=== PATIENT | male | born 1945 | race Caucasian/White ===

== ENCOUNTER → 2017-05-01 | Outpatient (CLI) | payer OTHER, MEDICARE ==
[~2017-05-01] MED LIST: ALBU90OI INH; ALLO300; AMIT25 PO; BUDE6HFA INH; CELE200 PO; CEPH500 PO; EZET10 PO; FEXO180 PO; FLUT44OIA INH; HYDHCL25 PO; HYDPAM50 PO; IPRA.03NI; Ipratropium Bro30 ML; LEVCAR10; LEVFLO500 PO; LEVOFLOXACIN750 MG PO; LIDO700A20 TOP; LOVENOX; METPRE4DP PO; MONT10T PO; OMEP20ER PO; PRAV10; Prilosec Otc20 MG; RABE20 PO; RXCEPH500 PO; SIMV10 PO; Sudogest60 MG PO; TRAM50 PO; TRAZ50 PO; VIOXX; XARELTO20 MG PO; [UNRECOGNIZED DRUG - OTHER]
[2017-05-01 13:28] LABS: Glucose, Blood 118 mg/dL (70-99)
== END | disposition home or self-care (01) ==
LOC: LAB SHORT 10:52 → OLS 10:52 → EDSTATUS 04-09 10:15 → LAB FUT 04-09 10:15
PROVIDERS: Internal Medicine
DX: I10 Essential (primary) hypertension (principal)
CPT/HCPCS: 36415; 82947; 83036

== ENCOUNTER → 2017-05-03 | Outpatient (CLI) | payer OTHER, MEDICARE | END | disposition home or self-care (01) | LOC: LAB 11:25 | PROVIDERS: Internal Medicine | DX: I10 Essential (primary) hypertension (principal) | CPT/HCPCS: 81050; 82384; 82530; 82570; 83835; 84585 ==

== ENCOUNTER 2017-05-05 07:10 | Day surgery (SDC) | payer OTHER, MEDICARE ==
[~2017-05-05] VITALS: Ht 188 cm; Wt 99.2 kg
== END 2017-05-05 09:39 | disposition home or self-care (01) ==
LOC: ORSCSDS 07:10
PROVIDERS: Internal Medicine Gastroenterology
PROC: 0DBK8ZX Excision of Ascending Colon, Via Natural or Artificial Opening Endoscopic, Diagnostic (ICD-10-PCS; principal; 2017-05-05 08:45)
PROC: 0DBM8ZX Excision of Descending Colon, Via Natural or Artificial Opening Endoscopic, Diagnostic (ICD-10-PCS; principal; 2017-05-05 08:45)
DX: Z86.010 Personal history of colon polyps (principal); D12.2 Benign neoplasm of ascending colon; D12.4 Benign neoplasm of descending colon; K64.8 Other hemorrhoids; K57.30 Diverticulosis of large intestine without perforation or abscess without bleeding; J45.909 Unspecified asthma, uncomplicated; E78.5 Hyperlipidemia, unspecified; Z86.718 Personal history of other venous thrombosis and embolism; Z79.01 Long term (current) use of anticoagulants; Z79.899 Other long term (current) drug therapy
CPT/HCPCS: 88305; J7120

== ENCOUNTER 2018-05-25 11:18 | Day surgery (SDC) | payer OTHER, MEDICARE ==
[~2018-05-25] VITALS: Ht 190.5 cm; Wt 98.9 kg
[2018-05-25] MEDS ORDERED: ACET325 (12:00)
--- NOTE | 2018-05-25 12:10 | NUR ---
05/25/18 1210 Dom Zamora 1ST IV ATTEMPT IN RH UNSUCCESSFUL, SHAYY 2ND IV ATTEMPT IN RAC SUCCESSFUL, SHAYY
== END 2018-05-25 15:30 | disposition home or self-care (01) ==
LOC: ORSCSDS 11:18
PROVIDERS: Internal Medicine Gastroenterology
PROC: 0DB68ZX Excision of Stomach, Via Natural or Artificial Opening Endoscopic, Diagnostic (ICD-10-PCS; principal; 2018-05-25 12:45)
PROC: 0DB58ZX Excision of Esophagus, Via Natural or Artificial Opening Endoscopic, Diagnostic (ICD-10-PCS; principal; 2018-05-25 12:45)
PROC: 0DJD8ZZ Inspection of Lower Intestinal Tract, Via Natural or Artificial Opening Endoscopic (ICD-10-PCS; principal; 2018-05-25 12:45)
DX: K22.70 Barrett's esophagus without dysplasia (principal); K31.7 Polyp of stomach and duodenum; K44.9 Diaphragmatic hernia without obstruction or gangrene; K64.8 Other hemorrhoids; K57.30 Diverticulosis of large intestine without perforation or abscess without bleeding; Z86.010 Personal history of colon polyps; J45.909 Unspecified asthma, uncomplicated; E78.5 Hyperlipidemia, unspecified; Z86.718 Personal history of other venous thrombosis and embolism; Z79.01 Long term (current) use of anticoagulants; Z79.899 Other long term (current) drug therapy
CPT/HCPCS: 88305; J2704; J7120

== ENCOUNTER 2021-05-28 09:26 | Day surgery (SDC) | payer OTHER, MEDICARE ==
[~2021-05-28] VITALS: Ht 188 cm; Wt 101.8 kg
[~2021-05-28 09:26] MED LIST changes: +ACET325
--- NOTE | 2021-05-28 10:15 | NUR ---
Ambulatory in Day Surgery History, Chart, Medications and Allergies reviewed before start of procedure. Lungs clear T/O to Auscultation. Patient confirms NPO status and agrees with scheduled surgery. Pre-Op teaching done. Pt verbalizes understanding. Patient States Post-Procedure ride home has been arranged.
--- NOTE | 2021-05-28 10:36 | NUR ---
05/28/21 1036 Mariela Soriano History, Chart, Medications and Allergies reviewed before start of procedure. Patient confirms NPO status and agrees with scheduled surgery. 3-LEAD EKG REVIEWED WITH PHYSICIAN PRIOR TO START OF PROCEDURE. MONITOR INTACT WITH CONTINUOUS PULSE OXIMETRY AND INTERMITTENT BP. PATIENT DETERMINED TO BE ASA APPROPRIATE FOR PROPOFOL SEDATION PRIOR TO START OF PROCEDURE BY DR. HIGUERA
--- NOTE | 2021-05-28 12:44 | NUR ---
Discharge instructions reviewed with patient. Patient verbalizes understanding. Copy given to patient to take home. Discharged via wheelchair to private car for ride home. PT DENIES NEED FOR ANYTHING TO DRINK PRIOR TO DC HOME. DR HIGUERA CAME AND SPOKE WITH PT AND PRIOR TO DC HOME.
== END 2021-05-28 12:45 | disposition home or self-care (01) ==
LOC: ORSCMMR 09:26 → ORSCSDS 10:45 → ORD 10:45 → ORSCMMR 12:45
PROVIDERS: Internal Medicine Gastroenterology
PROC: 0DBK8ZX Excision of Ascending Colon, Via Natural or Artificial Opening Endoscopic, Diagnostic (ICD-10-PCS; principal; 2021-05-28 10:45)
PROC: 0DBP8ZX Excision of Rectum, Via Natural or Artificial Opening Endoscopic, Diagnostic (ICD-10-PCS; principal; 2021-05-28 10:45)
PROC: 0DB78ZX Excision of Stomach, Pylorus, Via Natural or Artificial Opening Endoscopic, Diagnostic (ICD-10-PCS; principal; 2021-05-28 10:45)
PROC: 0DB58ZX Excision of Esophagus, Via Natural or Artificial Opening Endoscopic, Diagnostic (ICD-10-PCS; principal; 2021-05-28 10:45)
DX: K22.70 Barrett's esophagus without dysplasia (principal); K31.7 Polyp of stomach and duodenum; Z12.11 Encounter for screening for malignant neoplasm of colon; Z86.010 Personal history of colon polyps; D12.2 Benign neoplasm of ascending colon; D12.8 Benign neoplasm of rectum; K44.9 Diaphragmatic hernia without obstruction or gangrene; K57.30 Diverticulosis of large intestine without perforation or abscess without bleeding; K64.8 Other hemorrhoids; J44.9 Chronic obstructive pulmonary disease, unspecified; Z85.46 Personal history of malignant neoplasm of prostate; J45.909 Unspecified asthma, uncomplicated; I10 Essential (primary) hypertension
CPT/HCPCS: 88305; J2704; J7120

== ENCOUNTER 2024-05-23 07:14 | Inpatient (IN) | payer OTHER ==
[~2024-05-23] VITALS: Ht 188 cm; Wt 96.8 kg
[2024-05-23] MEDS ORDERED: Ipratropium Bromide INH 0.02% 0.5 mg/2.5ML Vial INH SCH (08:40)
[2024-05-23] MEDS ORDERED: NS 1,000 ML IV SCH ×3 (08:40→17:00)
[2024-05-23] MEDS ORDERED: Albuterol 2.5 MG/3 ML VIAL INH SCH ×3 (08:40→14:15)
[2024-05-23 08:45] LABS: BASOPHILS ABSOLUTE AUTO 0.02 K/mm3 (0.00-0.23); BASOPHILS PERCENT AUTO 0 % (0-2); EOSINOPHILS ABSOLUTE AUTO 0.01 K/mm3 (0.00-0.68); EOSINOPHILS PERCENT AUTO 0 % (0-6); Hematocrit 36.6 % (37.0-53.0); Hemoglobin 12.5 g/dL (13.5-17.5); IMMATURE GRAN ABSOLUTE AUTO 0.03 K/mm3 (0.00-0.10); IMMATURE GRAN PERCENT AUTO 0 % (0-1); LYMPHOCYTES ABSOLUTE AUTO 0.49 K/mm3 (0.84-5.20); LYMPHOCYTES PERCENT AUTO 5 % (21-46); MONOCYTES ABSOLUTE AUTO 0.83 K/mm3 (0.16-1.47); MONOCYTES PERCENT AUTO 9 % (4-13); Mean Corpuscular HGB Conc 34.2 g/dL (31.5-36.5); Mean Corpuscular Volume 100 fL (80-100); Mean Platelet Volume 8.9 fL (9.1-12.4); NEUTROPHILS ABSOLUTE AUTO 8.36 K/mm3 (1.96-9.15); NEUTROPHILS PERCENT AUTO 86 % (41-73); Platelet Count 178 K/mm3 (150-400); RDW Coefficient Variation 12.7 % (11.7-14.2); Red Blood Cell Count 3.68 M/mm3 (4.30-5.90); White Blood Cell Count 9.74 K/mm3 (4.00-11.30)
[2024-05-23 09:07] LABS: Albumin/Globulin Ratio 1.2 (0.8-1.8); Bilirubin, Total 0.5 mg/dL (0.1-1.0); Bun/Creatinine Ratio 23.2 (12.0-20.0); Calcium, Blood 8.6 mg/dL (8.5-10.1); Creatinine, Blood 1.42 mg/dL (0.60-1.20); Globulin, Blood 3.4 g/dL (2.2-4.0); Potassium, Blood 4.2 mmol/L (3.5-5.5); Total Protein, Blood 7.4 g/dL (6.4-8.2)
[2024-05-23 09:16] LABS: Influenza B, PCR NEGATIVE (NEGATIVE); Resp Syncytial Virus, PCR NEGATIVE (NEGATIVE); SARS-Cov-2 (COVID-19) PCR, MMC NEGATIVE (NEGATIVE)
[2024-05-23 09:32] LABS: Influenza A, PCR POSITIVE (NEGATIVE)
[2024-05-23 09:35] LABS: Source, Urine Clean Catch
[2024-05-23 09:37] LABS: Appearance, Urine Clear (Clear); Bilirubin, Urine Neg (Neg); Blood, Urine 5+ (Neg); Color, Urine Yellow (P-Yellow); Glucose Qualitative, Urine Neg (Neg); Ketones, Urine Neg (Neg); Leukocyte Esterase, Urine Neg (Neg); Nitrite, Urine Neg (Neg); Protein, Urine 2+ (Neg); Urobilinogen, Urine NORM (Normal)
[2024-05-23] MEDS ORDERED: Doxycycline Hyclate 100 MG TAB PO ONE (11:30)
[2024-05-23] MEDS ORDERED: MethylPREDNISolone Sod Succ 125 MG Vial IV ONE (11:30)
[2024-05-23 11:41] LABS: Bacteria Mod /hpf; Squamous Epithelial Cells Not Seen /hpf (Few)
[2024-05-23] MEDS ORDERED: Acetaminophen 325 MG TABLET PO ONE (11:45)
[2024-05-23] MEDS ORDERED: IRBESARTAN300 M3 PO (14:14)
[2024-05-23] MEDS ORDERED: TRAZ100 PO (14:14)
[2024-05-23] MEDS ORDERED: Oseltamivir Phosphate 75 MG Cap PO ONE ×2 (14:15→21:00)
[2024-05-23] MEDS ORDERED: Acetaminophen 325 MG TABLET PO PRN (15:50)
[2024-05-23] MEDS ORDERED: Ipratropium/Albuterol SulF 2.5-0.5MG/3 ML Amp INH SCH (15:55)
[2024-05-23] MEDS ORDERED: Ondansetron 4 MG TAB PO PRN (15:55)
[2024-05-23] MEDS ORDERED: CefTRIAXone Sodium 1,000 MG in NS 100 ML IV SCH (16:00)
[2024-05-23 18:29] VITALS: BP 106/54
[2024-05-23] MEDS ORDERED: TraZODone HCl 100 MG Tab PO PRN (18:50)
[2024-05-23] MEDS ORDERED: Mometasone/Formoterol MDI 200/5 mcg 13 GM INH SCH (18:55)
[2024-05-23] MEDS ORDERED: MethylPREDNISolone Sod Succ 125 MG Vial IV SCH (19:00)
[2024-05-23 20:25] VITALS: BP 118/62
[2024-05-23] MEDS ORDERED: Lactobacil 2-S.Thermo-Bifido 1 1 Cap PO SCH (21:00)
[2024-05-23] MEDS ORDERED: Ezetimibe 10 MG Tab PO SCH (21:00)
[2024-05-24 00:06] VITALS: BP 131/65
[2024-05-24 04:01] LABS: BASOPHILS ABSOLUTE AUTO 0.01 K/mm3 (0.00-0.23); BASOPHILS PERCENT AUTO 0 % (0-2); EOSINOPHILS PERCENT AUTO 0 % (0-6); Hematocrit 31.5 % (37.0-53.0); Hemoglobin 10.3 g/dL (13.5-17.5); IMMATURE GRAN ABSOLUTE AUTO 0.03 K/mm3 (0.00-0.10); IMMATURE GRAN PERCENT AUTO 1 % (0-1); LYMPHOCYTES ABSOLUTE AUTO 0.27 K/mm3 (0.84-5.20); LYMPHOCYTES PERCENT AUTO 4 % (21-46); MONOCYTES ABSOLUTE AUTO 0.28 K/mm3 (0.16-1.47); MONOCYTES PERCENT AUTO 4 % (4-13); Mean Corpuscular HGB 33.3 pg (26.0-34.0); Mean Corpuscular HGB Conc 32.7 g/dL (31.5-36.5); Mean Corpuscular Volume 102 fL (80-100); Mean Platelet Volume 8.9 fL (9.1-12.4); NEUTROPHILS ABSOLUTE AUTO 5.86 K/mm3 (1.96-9.15); NEUTROPHILS PERCENT AUTO 91 % (41-73); Platelet Count 154 K/mm3 (150-400); RDW Coefficient Variation 13.1 % (11.7-14.2); RDW Standard Deviation 48.7 fL (35.1-46.3); Red Blood Cell Count 3.09 M/mm3 (4.30-5.90); White Blood Cell Count 6.45 K/mm3 (4.00-11.30)
[2024-05-24 04:34] LABS: Albumin, Blood 3.1 g/dL (3.4-5.0); Bilirubin, Total 0.2 mg/dL (0.1-1.0); Bun/Creatinine Ratio 22.7 (12.0-20.0); Calcium, Blood 7.7 mg/dL (8.5-10.1); Creatinine, Blood 1.5 mg/dL (0.60-1.20); Total Protein, Blood 6.1 g/dL (6.4-8.2)
[2024-05-24 04:43] VITALS: BP 122/73
--- NOTE | 2024-05-24 06:42 | NUR ---
PT STABLE THROUGHOUT THE SHIFT. PT WAS AWAKE MOST OF THE SHIFT BUT DID REQUIRE SUPPLEMENT O2 WHEN HE FINALLY WAS ABLE TO SLEEP. PT DID DESAT INTO MID 80S, NOW STABLE WHILE SLEEPING ON 2LO2. PT TOLERATING IV FLUIDS WELL BUT IS TAKING PO AT THIS TIME ALSO. PT AOX4 AND WAS ABLE TO STAND AT BEDSIDE TO USE URINAL, PT SLIGHTLY UNSTEADY ON FEET. PT MODERATELY PRODUCTIVE COUGH TRANSITIONED FROM WHITE TO GREEN SPUTUM. EXPIRATORY WHEEZE PRESENT TO B/L LOWER LOBES AND RML. PT AFEBRILE. PT DID HAVE GOOD URINARY OUTPUT DURING SHIFT.
[2024-05-24 07:21] VITALS: BP 122/82
--- NOTE | 2024-05-24 07:32 | NUR ---
AM NOTE md miranda and medical student in room at this time. discussed patient improvement and if continue to improves will be able to go home in the next day or so. Plan to do maintence fluids at 150mls/hr of normal saline, and to continue iv antibiotics. patient verbalizes understanding. this rn assumed care at 0700. vital signs stable. spo2 at 97% on 2l nc this rn titrated to room air and patient spo2 >90% and remains that way. tele sinus rhythm 60-70s. patient is alert and oriented x4. neuro is intact. patient is able to make needs known and uses call light appropriately. patient has generalized weakness, and standby assist for safety. patient deneis pain, chest pain/pressure or shortness of breath. patient lung sounds throughout have expiratory wheeze. patient has breathing treatment scheduled this morning. see shift assessment for further detials.
[2024-05-24] MEDS ORDERED: OMEP20ER PO (07:47)
[2024-05-24 08:00] LABS: Percent Saturation 13.3 % (20.0-50.0)
[2024-05-24] MEDS ORDERED: Azithromycin 250 MG Tab PO SCH (09:00)
[2024-05-24] MEDS ORDERED: Omeprazole 20 MG CapCR PO SCH (09:00)
[2024-05-24] MEDS ORDERED: Rivaroxaban 10 MG Tab PO SCH (09:00)
[2024-05-24] MEDS ORDERED: Montelukast Sodium 10 MG Tab PO SCH (09:00)
[2024-05-24] MEDS ORDERED: Oseltamvir Phosphate 30 MG Cap PO SCH (09:00)
[2024-05-24] MEDS ORDERED: NS 1,000 ML IV SCH (09:05)
--- NOTE | 2024-05-24 10:37 | NUR ---
transfer of care this rn gave report to rojas morales whom is assuming care at this time
[2024-05-24 11:11] VITALS: BP 130/82
[2024-05-24 15:13] VITALS: BP 113/71
[2024-05-24] MEDS ORDERED: DEXTROMETHORPHAN/BENZOCAINE 1 EACH LOZENGE MT PRN (16:10)
--- NOTE | 2024-05-24 17:06 | NUR ---
SHIFT SUMMARY PT A&Ox4, CALLS AND COMMUNICATES NEEDS APPROPRIATELY. IND/SBA IN ROOM. BP STABLE, SINUS 70's, DENIES CP/PRESSURE. SpO2> 92% RA, DENIES SOB, C/O COUGH/SORE THROAT, COUGH DROPS ORDERED. NO C/O PAIN. AT BEDSDIE THROUGHOUT SHIFT. NO OTHER EVENTS, WILL REPORT TO ONCOMING RN.
[2024-05-24 20:04] VITALS: BP 151/71
[2024-05-24] MEDS ORDERED: TraZODone HCl 50 MG Tab PO ONE (22:40)
[2024-05-25 00:59] VITALS: BP 154/80
[2024-05-25 03:59] VITALS: BP 134/91
[2024-05-25 04:46] LABS: BASOPHILS PERCENT AUTO 0 % (0-2); EOSINOPHILS PERCENT AUTO 0 % (0-6); Hemoglobin 9.9 g/dL (13.5-17.5); IMMATURE GRAN ABSOLUTE AUTO 0.02 K/mm3 (0.00-0.10); IMMATURE GRAN PERCENT AUTO 0 % (0-1); LYMPHOCYTES PERCENT AUTO 8 % (21-46); MONOCYTES ABSOLUTE AUTO 0.72 K/mm3 (0.16-1.47); MONOCYTES PERCENT AUTO 8 % (4-13); Mean Corpuscular HGB 32.8 pg (26.0-34.0); Mean Corpuscular Volume 99 fL (80-100); Mean Platelet Volume 9.3 fL (9.1-12.4); NEUTROPHILS ABSOLUTE AUTO 7.36 K/mm3 (1.96-9.15); NEUTROPHILS PERCENT AUTO 84 % (41-73); Platelet Count 147 K/mm3 (150-400); RDW Coefficient Variation 12.9 % (11.7-14.2); RDW Standard Deviation 46.5 fL (35.1-46.3); Red Blood Cell Count 3.02 M/mm3 (4.30-5.90)
--- NOTE | 2024-05-25 05:01 | NUR ---
SHIFT SUMMARY NO ACUTE CHANGES OVERNIGHT. VSS ON RA >96%. NO SOB NOTED HOWEVER PT REPORTS INTERMITTENT COUGHING, COUGH DROPS GIVEN WITH GOOD EFFECT. PT USING URINAL AT BEDSIDE AND BATHROOM WITH SBA. STRONG STEADY GAIT. NO FURTHER QUESTIONS OR CONCERNS AT THIS TIME. CALL [facility] WITHIN REACH. WILL CONTINUE WITH PLAN OF CARE.
[2024-05-25 05:17] LABS: Bun/Creatinine Ratio 23.6 (12.0-20.0); Calcium, Blood 8.2 mg/dL (8.5-10.1); Creatinine, Blood 1.23 mg/dL (0.60-1.20); Potassium, Blood 3.9 mmol/L (3.5-5.5)
[2024-05-25] MEDS ORDERED: PredniSONE 20 MG Tab PO SCH (09:00)
[2024-05-25 11:37] VITALS: BP 125/67
[2024-05-25] MEDS ORDERED: Acetaminophen325 M1 PO (11:52)
[2024-05-25] MEDS ORDERED: Tamiflu30 MG PO (11:54)
[2024-05-25] MEDS ORDERED: PRED20 PO (11:55)
[2024-05-25] MEDS ORDERED: AMOCLA875 PO (11:56)
[2024-05-25] MEDS ORDERED: CefTRIAXone Sodium 1,000 MG in NS 100 ML IV SCH (14:00)
--- NOTE | 2024-05-25 14:56 | NUR ---
PT DISCHARGE TO HOME WIHT DISCHARGE ORDERS. AT THE BEDSIDE UPON DISCHARGE. DISCLOSED DISCHARGE INFORMATION WITH BOTH AND THE PT, BOTH VERBALIZED UNDERSTANDING. 8TH DOSE OF IV ABX [id number] INFUSED PER DR QUEZADA PRIOR TO DISCHARGE. PRESCRIPTION SENT TO [facility]. ALL BELONGINGS SENT WITH THE PT. ACCOMPANIED VIA WHEELCHAIR UPON DISCHARGE.
[2024-05-25] MEDS ORDERED: Oseltamivir Phosphate 75 MG Cap PO SCH (21:00)
== END 2024-05-25 14:41 | disposition home or self-care (01) | DRG 871 ==
LOC: ER 07:14 → PCU 15:48
PROVIDERS: Physician Assistant; ADMIT Internal Medicine
DX: A41.89 Other specified sepsis (principal); J10.00 Influenza due to other identified influenza virus with unspecified type of pneumonia; J44.0 Chronic obstructive pulmonary disease with (acute) lower respiratory infection; J44.1 Chronic obstructive pulmonary disease with (acute) exacerbation; K22.70 Barrett's esophagus without dysplasia; R65.20 Severe sepsis without septic shock; I10 Essential (primary) hypertension; K21.9 Gastro-esophageal reflux disease without esophagitis; Z96.643 Presence of artificial hip joint, bilateral; Z96.653 Presence of artificial knee joint, bilateral; Z88.6 Allergy status to analgesic agent; Z91.81 History of falling; Z79.51 Long term (current) use of inhaled steroids; Z85.46 Personal history of malignant neoplasm of prostate; Z86.718 Personal history of other venous thrombosis and embolism; Z79.01 Long term (current) use of anticoagulants
CPT/HCPCS: 0241U; 36415; 71046; 80048; 80053; 81001; 82607; 82728; 82746; 83540; 83550; 83605; 84145; 85025; 87040; 87077; 87086; 87186; 93005; 93010; 94640; 94644; 94645; 94664; 94760; 94762; 96361; 96374; 97161; 99285-25; A9270; J0696; J2919; J7030; J7512

== ENCOUNTER 2025-01-20 07:07 | Day surgery (SDC) | payer OTHER ==
[~2025-01-20] VITALS: Ht 188 cm; Wt 100.6 kg
[~2025-01-20 07:07] MED LIST changes: +AMOCLA875 PO; +Acetaminophen325 M1 PO; +IRBESARTAN300 M3 PO; +PRED20 PO; +TRAZ100 PO; +Tamiflu30 MG PO
[2025-01-20] MEDS ORDERED: SYMBICORT 160-4.6 GM (07:48)
[2025-01-20] MEDS ORDERED: SPIRIVA RESPIMAT4 G2 IH (07:48)
[2025-01-20 09:46] VITALS: BP 148/91
== END 2025-01-20 09:51 | disposition home or self-care (01) ==
LOC: ORSCSDS 07:07
DX: K22.70 Barrett's esophagus without dysplasia (principal); K21.9 Gastro-esophageal reflux disease without esophagitis; K44.9 Diaphragmatic hernia without obstruction or gangrene; Z12.11 Encounter for screening for malignant neoplasm of colon; Z86.0100 Personal history of colon polyps, unspecified; J44.89 Other specified chronic obstructive pulmonary disease; Z86.718 Personal history of other venous thrombosis and embolism; I10 Essential (primary) hypertension; Z79.01 Long term (current) use of anticoagulants; Z79.899 Other long term (current) drug therapy; K64.8 Other hemorrhoids; K57.30 Diverticulosis of large intestine without perforation or abscess without bleeding
CPT/HCPCS: 43239; G0105; 88305; J2704; J7120